=== PATIENT | female | born 1975 | race Caucasian/White ===

== ENCOUNTER 2018-03-25 10:21 | Observation (INO) | payer BC, OTHER ==
[~2018-03-25] VITALS: Ht 165.1 cm; Wt 76.7 kg
[2018-03-25] MEDS: LACTATED RINGERS 1,000 ML IV SCH ×3 (11:13→21:37)
[2018-03-25 11:58] LABS: CLARITY URINE CLEAR (CLEAR); COLOR URINE YELLOW (YELLOW); KETONES URINE 1+ (NEGATIVE); LEUKOCYTE ESTERASE URINE NEGATIVE (NEGATIVE); NITRITE URINE NEGATIVE (NEGATIVE); OCCULT BLOOD URINE NEGATIVE (NEGATIVE); PROTEIN URINE NEGATIVE (NEGATIVE); SPECIFIC GRAVITY URINE 1.016 (1.005-1.030); UROBILINOGEN URINE 0.2 E.U./dL (0.2-1.0)
[2018-03-25] MEDS ORDERED: MAGNESIUM 20 G PREMIX (L & D) 500 ML IV SCH (12:15)
[2018-03-25] MEDS ORDERED: DEXT 5%/LR + PITOCIN 20UNITS/L 1,000 ML IV SCH (12:21)
[2018-03-25] MEDS ORDERED: TERBUTALINE SULFATE 1MG/ML VIAL ONE (12:27)
[2018-03-25] MEDS ORDERED: CARBOPROST TROMETHAMINE 250 MCG/ML AMPUL IM PRN (12:30)
[2018-03-25] MEDS ORDERED: LIDOCAINE HCL 1% 20ML VIAL (Pyxis) INJ INFIL SCH (12:30)
[2018-03-25] MEDS ORDERED: METHYLERGONOVINE MALEATE 0.2 MG/ML IM PRN (12:30)
[2018-03-25] MEDS ORDERED: NALOXONE HCL 0.4 MG/ML 1ML VIAL IM PRN (12:30)
[2018-03-25] MEDS ORDERED: TERBUTALINE SULFATE 1MG/ML VIAL SUBCUT PRN (12:30)
[2018-03-25] MEDS: AZITHROMYCIN 500 MG in DEXT 5% WATER 250 ML IV SCH (13:37)
[2018-03-25] MEDS ORDERED: BETAMETHASONE ACET/BETAMET 30 MG/5 ML VIAL IM NR (14:00)
[2018-03-25 15:33] LABS: *AMPHETAMINES SCREEN URINE NEGATIVE (NEGATIVE); *BARBITURATES SCREEN URINE NEGATIVE (NEGATIVE)
[2018-03-25 15:34] LABS: *BENZODIAZEPINES SCREEN URINE NEGATIVE (NEGATIVE); *COCAINE SCREEN URINE NEGATIVE (NEGATIVE); CANNABINOID URINE SCREEN NEGATIVE (NEGATIVE); METHADONE URINE SCREEN NEGATIVE (NEGATIVE); OPIATES URINE SCREEN NEGATIVE (NEGATIVE); PHENCYCLIDINE URINE SCREEN NEGATIVE (NEGATIVE)
[2018-03-25 15:59] LABS: BASOPHILS % 0.1 % (0.0-2.0); EOSINOPHILS % 0.1 % (0.0-5.0); HEMATOCRIT. 35.4 % (36.0-48.0); HEMOGLOBIN. 12.5 g/dL (12.0-16.0); LYMPHOCYTES % 9.4 % (20.0-50.0); MEAN CORPUSCULAR HEMOGLOBIN 35.1 pg (28.0-32.0); MEAN CORPUSCULAR VOLUME 99.1 fL (81.0-99.0); MONOCYTES % 3.8 % (2.0-8.0); NEUTROPHILS % 86.6 % (40.0-76.0); PLATELET 355 x1000/uL (130-400); RED BLOOD CELL COUNT 3.57 mill/uL (4.2-5.4); RED CELL DISTRIBUTION WIDTH 13.5 % (11.6-14.6)
[2018-03-25 16:07] LABS: INR 0.9; PARTIAL THROMBOPLASTIN TIME 28.9 sec (23.4-31.0); PROTHROMBIN TIME 9.3 sec (9.1-11.1)
[2018-03-25 16:38] LABS: HEPATITIS B SURFACE ANTIGEN NEGATIVE
[2018-03-25] MEDS: MAGNESIUM 20 G PREMIX (L & D) 500 ML IV SCH (20:05)
[2018-03-25] MEDS ORDERED: LIOTHYRONINE SODIUM 5MCG TABLET PO NR (21:30)
[2018-03-25] MEDS: DIPHENHYDRAMINE 50MG/ML VIAL IM PRN (21:37)
[2018-03-25] MEDS: ACETAMINOPHEN 650MG/20.3ML UDC PO PRN (21:44)
[2018-03-26] MEDS ORDERED: BETAMETHASONE ACET/BETAMET 30 MG/5 ML VIAL IM ONE (01:00)
[2018-03-26] MEDS: MAGNESIUM 20 G PREMIX (L & D) 500 ML IV SCH ×2 (05:11→14:24)
[2018-03-26] MEDS ORDERED: LEVOTHYROXINE SODIUM 75MCG TABLET PO ONE (06:40)
[2018-03-26] MEDS ORDERED: LIOTHYRONINE SODIUM 5MCG TABLET PO SCH (08:00)
[2018-03-26] MEDS ORDERED: LEVOTHYROXINE SODIUM 75MCG TABLET PO SCH (08:00)
[2018-03-26] MEDS ORDERED: INFLUENZA VIRUS VACCINE(AFLURIA) 0.5ML SYR IM ONE (09:00)
[2018-03-26] MEDS: LACTATED RINGERS 1,000 ML IV SCH (11:05)
[2018-03-26] MEDS: ACETAMINOPHEN 650MG/20.3ML UDC PO PRN (11:45)
[2018-03-26] MEDS: PRENATAL VIT/FE FUMARATE/FA TABLET PO SCH (13:26)
[2018-03-26] MEDS: AZITHROMYCIN 500 MG in DEXT 5% WATER 250 ML IV SCH (13:45)
[2018-03-26 13:52] LABS: T4 FREE 1.02 ng/dL (0.76-1.46)
[2018-03-26 14:24] VITALS: BP 113/64
[2018-03-26] MEDS ORDERED: BETAMETHASONE ACET/BETAMET 30 MG/5 ML VIAL IM SCH (14:30)
[2018-03-26] MEDS ORDERED: DOCUSATE SODIUM 100MG CAPSULE PO SCH (17:00)
[2018-03-26] MEDS: DIPHENHYDRAMINE 50MG/ML VIAL IM PRN (20:17)
[2018-03-27] MEDS: LACTATED RINGERS 1,000 ML IV SCH ×2 (00:27→07:56)
[2018-03-27] MEDS ORDERED: LACTATED RINGERS 1,000 ML IV SCH (08:00)
[2018-03-27] MEDS: PRENATAL VIT/FE FUMARATE/FA TABLET PO SCH (09:01)
[2018-03-27] MEDS ORDERED: DIPHENHYDRAMINE 25MG CAPSULE PO PRN (09:30)
[2018-03-27 10:49] LABS: BASOPHILS % 0.3 % (0.0-2.0); EOSINOPHILS % 0.2 % (0.0-5.0); HEMATOCRIT. 32.3 % (36.0-48.0); HEMOGLOBIN. 11.2 g/dL (12.0-16.0); LYMPHOCYTES % 19.6 % (20.0-50.0); MEAN CORPUSCULAR HEMOGLOBIN 34.8 pg (28.0-32.0); MEAN CORPUSCULAR VOLUME 100.6 fL (81.0-99.0); MONOCYTES % 5.9 % (2.0-8.0); PLATELET 307 x1000/uL (130-400); RED BLOOD CELL COUNT 3.21 mill/uL (4.2-5.4)
[2018-03-27] MEDS: AZITHROMYCIN 500 MG in DEXT 5% WATER 250 ML IV SCH (13:03)
== END 2018-03-27 19:14 | disposition short-term general hospital (02) ==
LOC: L&D 10:21
PROVIDERS: ADMIT Specialist; ATTEND Specialist
DX: O60.02 Preterm labor without delivery, second trimester (principal); O99.282 Endocrine, nutritional and metabolic diseases complicating pregnancy, second trimester; E03.9 Hypothyroidism, unspecified; O34.32 Maternal care for cervical incompetence, second trimester; O34.12 Maternal care for benign tumor of corpus uteri, second trimester; D25.9 Leiomyoma of uterus, unspecified; O09.522 Supervision of elderly multigravida, second trimester; Z3A.23 23 weeks gestation of pregnancy
CPT/HCPCS: 36415; 76805; 80305; 81003; 83735; 84439; 84443; 85025; 85610; 85730; 86592; 86703; 86762; 86850; 86900; 86901; 87340; 96365; 96366; 96368; 96372; G0378; J0456; J0702; J1200; J3105; J3475; 99281; J2590; J7060; J7120; A4315